=== PATIENT | female | born 1980 | race Two or more races ===

== ENCOUNTER 2022-04-21 20:58 | Emergency (ER) | payer MEDICAID ==
[~2022-04-21] VITALS: Ht 162.6 cm; Wt 46.0 kg
[2022-04-21 22:10] VITALS: BP 129/70
== END 2022-04-22 06:49 | disposition left against medical advice (07) ==
LOC: ER 20:58
DX: S91.311A Laceration without foreign body, right foot, initial encounter (principal); Z53.21 Procedure and treatment not carried out due to patient leaving prior to being seen by health care provider; W55.01XA Bitten by cat, initial encounter; Y93.89 Activity, other specified; Y92.89 Other specified places as the place of occurrence of the external cause; Y99.8 Other external cause status